=== PATIENT | male | born 1995 | race Caucasian/White ===

== ENCOUNTER 2018-03-25 16:08 | Emergency (ER) | payer BC, OTHER, SELFPAY ==
[2018-03-25 16:14] VITALS: BP 168/104; PULSE 125; RESP 16; TEMP 36.6; O2SAT 98
[2018-03-25] MEDS: Ondansetron O.D.T. 4 MG TABEF PO (16:52)
--- NOTE | 2018-03-25 16:52 | W.ED.GENAD ---
Discharge Plan Disposition Patient Disposition: HOME Condition: Improving Discharge Details Chief Complaint: ETOHWithdr Clinical Impression: Alcohol abuse Primary Care Provider: Julia Scruggs ED Provider: Jensen Sy Home Meds and New Rx's Prescriptions: Continued multivitamin Tablet 1 tab PO DAILY RF: 0 ascorbic acid (vitamin C) [Vitamin C] 500 mg Tablet 1 tab PO DAILY RF: 0 Discharge Instructions Instructions: Abuse of Alcohol (ED) Additional Instructions: Please continue to stay well hydrate and refrain from any further alcohol abuse. Please follow-up with your primary care provider for reassessment of your elevated liver enzymes and return to emergency department for any fever chills, severe abdominal pain, color changes to your skin. Referrals: [facility] [Provider Group] (Keep your appointment as scheduled for next week) Discharge Data Discharge Date/Time-TO BE ENTERED AT DEPARTURE: 03/25/18 18:45 Medical Decision Making <Tha Ram MD - Last Filed: 03/25/18 16:53> ECG Data Attestation: I personally reviewed and interpreted this ECG (s) as follows: Prior ECG tracings: not available for review Interpretation: sinus tachycardia, rate of 110, pr 156, no acute st t wave ischemic findings <Jensen Sy NP - Last Filed: 03/25/18 23:37> Patient presenting to the emergency department with his mother for chief complaint of possible alcohol withdrawal. Patient states that he was on a 6-day binge drinking episode which he has done in the past. He states his last drink was almost 24 hours ago. He does report last evening he did have some mild visual hallucinations which have resolved. He does state significant vomiting and diarrhea that is also improved and is now tolerating p.o. intake. Patient did attempt to follow-up with his primary care provider whom recommended he come to the emergency department. Patient denies any seizure type symptoms. Patient does state mild anxiety. Physical exam shows tachycardia. Patient does not appear severely anxious during my examination of him. There is no tremor. No physical exam findings were noted and normal neurological exam at this time. Given significant vomiting and dehydration I do feel that patient requires IV fluids and assessment of laboratory values but I do not feel that patient is at significant concern for DTs given more of a binge drinking episode with no acute findings beyond tachycardia and anxiety that I feel is more secondary to dehydration and having to come to the emergency department. Mother and patient do state that there is a plan in place with primary care for patient to be prescribed Antabuse, finish this semester of school, and to seek inpatient 30-day rehab once school is over. I feel that this is an appropriate plan and unless significant abnormalities I do not feel the patient needs inpatient detox as I feel he is low risk for DTs. Review of labs is nondiagnostic does show elevation of liver enzymes which I attribute to his alcohol abuse. EtOH is <3 and patient was reassessed after 2 L of fluid. Patient states significant improvement of symptoms, tachycardia hypertension have improved along with patient's anxiety. I feel that this is all reassuring. Patient was informed of his elevated liver enzymes and that he should follow-up with primary care to have these reassessed, continue to abstain from any further alcohol, and continue to p.o. hydrate and advance diet as tolerated. Return precautions were discussed otherwise I do not see any emergent need for patient to be admitted to the hospital at this time. After discussion of diagnosis and plan of care patient has no further needs, questions, or concerns and states clear understanding to return to the emergency department for any worsening symptoms. Lab Data Lab results reviewed: Yes I reviewed the patient's lab results. ECG Data Attestation: I personally reviewed and interpreted this ECG (s) as follows: Interpretation: Sinus tachycardia, rate of 110, no STEMI, nondiagnostic. EKG reviewed with attending physician Dr. Ram HPI <Tha Ram MD - Last Filed: 03/25/18 16:53> General Date/Time Provider Initiated Documentation: 03/25/18 16:10. Related Data Home Medications Medication Instructions Recorded Confirmed ascorbic acid (vitamin C) [Vitamin 1 tab PO DAILY 03/25/18 03/25/18 C] multivitamin 1 tab PO DAILY 03/25/18 03/25/18 Allergies Allergy/AdvReac Type Severity Reaction Status Date / Time No Known Allergies Allergy Unverified 03/25/18 16:18 <Jensen Sy NP - Last Filed: 03/25/18 23:37> General Mode of arrival: ambulatory. Limitations to Documentation: no limitations. Information obtained by: patient, family and RN notes reviewed. History of Present Illness 22 year old M presents to the emergency department with the chief complaint of Alcohol abuse, possible withdrawal, Quality is described as other (denies pain), Patient started experiencing this day(s) (1) and it has been other (improving). Patient did receive the following treatments prior to arrival, none General Stated Complaint: ETOHWithdr BERTO: 3 <Jensen Sy NP - Last Filed: 03/25/18 23:37> Constitutional Denies body ache(s), Denies chills, Denies fever(s) and Reports headache(s) ENT Reports headache(s) Cardiovascular Denies chest pain, Denies syncope, Reports rapid heart rate, Denies lightheadedness and Denies dyspnea Respiratory Denies dyspnea Gastrointestinal Denies abdominal pain, Reports diarrhea, Reports nausea and Reports vomiting Integumentary/Breasts Denies rash Neurologic Denies confusion, Denies syncope, Reports headache(s) and Denies sensory deficit Psychiatric Reports anxiety, Denies confusion, Denies panic attacks, Denies paranoia, Reports visual hallucinations, Denies tactile hallucinations, Denies homicidal ideation and Denies suicidal ideation [facility] <Tha Ram MD - Last Filed: 03/25/18 16:53> Social History Smoking and Tabacco status: Never <Jensen Sy NP - Last Filed: 03/25/18 23:37> Const General: cooperative, no acute distress and not ill appearing Orientation: alert, awake and oriented x3 HENMT Mouth: moist mucous membranes Throat: posterior oropharynx normal, tonsils normal and uvula midline Eyes General: appearance normal, both eyes and all related structures Alignment and Position: alignment normal Pupils: PERRL EOM: EOM intact bilaterally and No nystagmus Resp Effort & Inspection: normal respiratory effort, able to speak in complete sentences and no respiratory distress Auscultation: clear to auscultation bilaterally Cardio Rate: tachycardic Rhythm: regular rhythm Heart Sounds: S1 normal and S2 normal Skin General skin exam: no rashes or lesions noted Neuro General: alert, awake, oriented x3, gait normal, tone normal, moves all extremities, no meningeal signs, no focal motor deficits, CN's II-XI intact bilaterally, not confused and not obtunded Cranial Nerves: no nystagmus Speech: speech normal Gait: normal gait Motor: muscle tone normal throughout, strength 5/5 throughout, no fasciculations and no tremors Sensory Exam: no sensory deficits noted <Jensen Sy, NUCLEAR MEDICINE SPECIALIST - Last Filed: 03/25/18 23:37> Vital Signs Temperature 36.6 C 03/25/18 16:14 Pulse 125 H 03/25/18 16:14 Respiratory Rate 16 03/25/18 16:14 Blood Pressure 168/104 H 03/25/18 16:14 Pulse Oximetry 98 03/25/18 16:14 Temperature 36.6 C 03/25/18 16:14 Temperature Source Skin 03/25/18 16:14 Pulse 125 H 03/25/18 16:14 Respiratory Rate 16 03/25/18 16:14 Respiratory Effort Non-Labored 03/25/18 16:14 Blood Pressure 168/104 H 03/25/18 16:14 Blood Pressure Position Sitting 03/25/18 16:14 Pulse Oximetry 98 03/25/18 16:14 Oxygen Delivery Method Room Air 03/25/18 16:14 Oxygen Flow Rate 0 03/25/18 16:14 Pain Level 2 03/25/18 16:14
[2018-03-25] MEDS: Normal Saline 1,000 ML 1000 ML IV ×2 (17:00→17:30)
[2018-03-25 17:19] LABS: Abs Immature Grans 0.01 k/cumm (0.0-0.09); Absolute Basophil Count 0.01 k/cumm (0.0-0.2); Absolute Eosinophil Count 0.02 k/cumm (0.0-0.7); Absolute Lymphocyte Count 1.16 k/cumm (1.2-3.4); Absolute Monocyte Count 0.99 k/cumm (0.11-0.7); Absolute Neutrophil Count 6.46 k/cumm (1.2-6.7); Basophils % 0.1; Eosinophils % 0.2; HCT 46.7 % (40.0-50.0); HGB 16.3 g/dL (13.5-17.5); Immature Grans % 0.1; Lymphocytes % 13.4; Mean Corp. HGB Concentration 34.9 g/dL (32.0-36.0); Mean Corpuscular Hemoglobin 31.3 pg (27.0-33.0); Mean Corpuscular Volume 89.6 fL (80-95); Mean Platelet Volume 9.5 fL (8.0-11.0); Monocytes % 11.4; Neutrophils % 74.8; Platelet Count 241 x1000/uL (130-400); RBC 5.21 m/cumm (4.50-6.00); RBC Distribution Width 12.2 % (11.8-14.1); White Blood Cell Count 8.65 k/cumm (4.4-10.8)
[2018-03-25 17:31] LABS: ALT 121 U/L (12-78); AST 125 U/L (15-37); Albumin 4.4 g/dL (3.4-5.0); Alkaline Phosphatase 75 U/L (46-116); Anion Gap 10.4 mmol/L (3-11); BUN 8 mg/dL (7-18); Bilirubin, Total 1.5 mg/dL (0.2-1.0); CO2 30.6 mmol/L (21.0-32.0); CREATININE 1.03 mg/dL (0.70-1.30); Calcium 9.9 mg/dL (8.5-10.1); Chloride 96 mmol/L (98-107); Glucose 128 mg/dL (70-100); Magnesium 2.1 mg/dL (1.8-2.4); Potassium 3.5 mmol/L (3.5-5.1); Sodium 137 mmol/L (136-145); Total Protein 8.6 g/dL (6.4-8.2)
[2018-03-25 17:44] LABS: ETHANOL BLOOD < 3.0 mg/dL (<3)
[2018-03-25 18:43] VITALS: BP 137/98; PULSE 108; RESP 16; TEMP 37.1; O2SAT 99
[2018-03-29 14:05] LABS: Hepatitis A Antibody IgM Negative (NEGAT); Hepatitis B Core Antibody Negative (NEGAT); Hepatitis B surface Ag Negative (NEGAT); Hepatitis C Ab w Rflx HCV PCR Negative (NEGAT)
== END 2018-03-25 18:45 | disposition home or self-care (01) ==
PROVIDERS: Emergency Provider Nurse Practitioner Family; PCP Nurse Practitioner Family
DX: F10.230 Alcohol dependence with withdrawal, uncomplicated (principal); R00.0 Tachycardia, unspecified; F41.9 Anxiety disorder, unspecified; R11.10 Vomiting, unspecified; E86.0 Dehydration
CPT/HCPCS: 36415; 80053; 86704; 86709; 86803; 87340; 93005; 96360; 99284; 80320; 83735; 85025; 93010

== ENCOUNTER 2018-04-26 16:16 | Outpatient (REF) | payer BC, OTHER, SELFPAY ==
[2018-04-26 22:14] LABS: ALT 55 U/L (12-78); AST 20 U/L (15-37); Albumin 4.4 g/dL (3.4-5.0); Alkaline Phosphatase 63 U/L (46-116); Bilirubin, Direct 0.12 mg/dL (0.00-0.20); Bilirubin, Total 0.4 mg/dL (0.2-1.0); Total Protein 7.6 g/dL (6.4-8.2)
[2018-04-28 10:25] LABS: Hepatitis A Antibody IgM Negative (NEGAT); Hepatitis B Core Antibody Negative (NEGAT); Hepatitis B surface Ag Negative (NEGAT); Hepatitis C Ab w Rflx HCV PCR Negative (NEGAT)
== END 2018-04-26 16:36 ==
LOC: NCHCN 16:16
PROVIDERS: PCP Nurse Practitioner Family; Visit Provider Nurse Practitioner Family
DX: R79.89 Other specified abnormal findings of blood chemistry (principal); F10.10 Alcohol abuse, uncomplicated; F41.8 Other specified anxiety disorders; E66.9 Obesity, unspecified; R03.0 Elevated blood-pressure reading, without diagnosis of hypertension
CPT/HCPCS: 80076; 86704; 86709; 86803; 87340

== ENCOUNTER 2023-09-07 21:09 | Outpatient (REF) | payer OTHER, SELFPAY ==
[2023-09-08 19:11] LABS: Hepatitis C Ab w Rflx HCV PCR Negative (Negative)
[2023-09-08 19:12] LABS: HIV-1/2 Ag & Ab Screen Negative (Negative)
[2023-09-09 12:51] LABS: Syphilis Serology (RPR) Negative (Negative)
== END 2023-09-07 21:10 | disposition home or self-care (01) ==
LOC: NCHCN 21:09
PROVIDERS: PCP Nurse Practitioner Family; Visit Provider Family Medicine
DX: Z00.00 Encounter for general adult medical examination without abnormal findings (principal); Z11.3 Encounter for screening for infections with a predominantly sexual mode of transmission; Z11.4 Encounter for screening for human immunodeficiency virus [HIV]; Z11.59 Encounter for screening for other viral diseases
CPT/HCPCS: 86803; 87389; 86592

== ENCOUNTER 2024-09-22 10:11 | Outpatient (REF) | payer OTHER, SELFPAY ==
[2024-09-22 17:20] LABS: Calculated LDL 93 mg/dL (<100); Cholesterol 164 mg/dL (<200); Glucose 104 mg/dL (74-106); HDL Cholesterol 62 mg/dL (>or=40); Triglyceride 46 mg/dL (<150)
[2024-09-22 23:40] LABS: Hepatitis C Ab w Rflx HCV PCR Negative (Negative)
[2024-09-22 23:46] LABS: HIV-1/2 Ag & Ab Screen Negative (Negative)
[2024-09-23 12:26] LABS: Chlamydia Result Negative (Negative); GC Result Negative (Negative)
[2024-09-23 13:34] LABS: Syphilis Serology (RPR) Negative (Negative)
== END 2024-09-22 10:12 | disposition home or self-care (01) ==
LOC: NCHCN 10:11
PROVIDERS: PCP Nurse Practitioner Family; Visit Provider Family Medicine
DX: Z20.2 Contact with and (suspected) exposure to infections with a predominantly sexual mode of transmission (principal); E66.9 Obesity, unspecified
CPT/HCPCS: 80061; 82947; 86803; 87389; 87491; 87591; 86592